=== PATIENT | male | born 1955 | race Caucasian/White ===

== ENCOUNTER 2023-10-01 22:27 | Observation (INO) | payer MEDICARE ==
--- NOTE | 2023-10-01 22:53 | ED ---
General Adult HPI - General Chief complaint: Chest Pain Stated complaint: Chest pain Time Seen by Provider: 10/01/23 22:43 Source: patient Mode of arrival: ambulatory Limitations: no limitations - History of Present Illness Initial comments: This patient is a 68-year-old man transferred here from [place] to have further cardiac evaluation related to chest pain. The patient developed pain approximately 3 days ago after cutting wood. He states that the pain is mainly in the left chest usually when he turns his head to the left and moves his shoulder. When I interview him he is not having any pain. There were no associated symptoms. Patient states that he had gone to the after hours clinic [facility] where they rubio his blood and then they called him at home and told his heart enzymes were elevated. Patient went back to the hospital and was t ransferred here. The patient denies recent cardiac testing. No known cardiac history. Onset/Timin -: days(s) Location: chest Radiation: extremity Consistency: intermittent Improves with: none Worsens with: none Treatments Prior to Arrival: Aspirin, other - Related Data Home Medications Medication Instructions Recorded Confirmed Bisoprolol [Zebeta] 2.5 mg PO DAILY 10/01/23 10/01/23 Fluticasone Nasal [place] [Flonase 1 spray EA NOSTRIL DAILY PRN 10/01/23 10/01/23 Nasal [place]] Previous Rx's Medication Instructions Recorded Aspirin 81 mg PO DAILY tab 10/03/23 Atorvastatin [Lipitor] 20 mg PO DAILY #90 tablet 10/03/23 Allergies Allergy/AdvReac Type Severity Reaction Status Date / Time No Known Allergies Allergy Verified 10/01/23 22:56 Review of Systems ROS Statement: Those systems with pertinent positive or pertinent negative responses have been documented in the HPI. ROS Other: All systems not noted in ROS Statement are negative. Constitutional: Denies: fever, chills Respiratory: Denies: cough, dyspnea, wheezes Cardiovascular: Reports: chest pain. Denies: palpitations, orthopnea, edema, syncope Gastrointestinal: Denies: abdominal pain, nausea, vomiting, diarrhea Genitourinary: Denies: dysuria, hematuria Musculoskeletal: Denies: back pain Skin: Denies: rash Neurological: Denies: headache, weakness, numbness Past Medical History Past Medical History: Hyperlipidemia, Hypertension History of Any Multi-Drug Resistant Organisms: None Reported Additional Past Surgical History / Comment(s): neck fusion, back surgery Past Psychological History: Unable to Obtain Smoking Status: Never smoker Past Alcohol Use History: Occasional Past Drug Use History: None Reported General Exam Limitations: no limitations General appearance: alert, in no apparent distress Head exam: Present: atraumatic, normocephalic Eye exam: Present: normal appearance. Absent: scleral icterus, conjunctival injection ENT exam: Present: normal oropharynx Neck exam: Present: normal inspection, full ROM Respiratory exam: Present: normal lung sounds bilaterally. Absent: respiratory distress, wheezes, rales, rhonchi, stridor, chest wall tenderness, accessory muscle use Cardiovascular Exam: Present: normal rhythm, bradycardia, normal heart sounds. Absent: systolic murmur, diastolic murmur, rubs, gallop GI/Abdominal exam: Present: soft. Absent: distended, tenderness, guarding, rebound, rigid, mass Extremities exam: Present: normal inspection, normal capillary refill. Absent: pedal edema, calf tenderness Back exam: Present: normal inspection. Absent: CVA tenderness (R), CVA tenderness (L) Neurological exam: Present: alert Skin exam: Present: warm, dry, intact, normal color. Absent: rash Course Vital Signs 10/01/23 10/02/23 10/02/23 22:35 02:09 04:15 Temperature 97.6 F Pulse Rate 54 L 50 L 50 L Respiratory 18 20 17 Rate Blood Pressure 156/102 154/93 119/93 O2 Sat by Pulse 97 93 L 96 Oximetry 10/02/23 10/02/23 10/02/23 06:34 08:00 12:00 Temperature 98.1 F Pulse Rate 54 L 60 49 L Respiratory 17 18 20 Rate Blood Pressure 151/96 148/93 127/90 O2 Sat by Pulse 98 97 95 Oximetry EKG Findings - EKG Results: EKG: interpreted by ERMD, sinus rhythm, normal axis, normal QRS, normal ST/T EKG shows: bradycardia (Rate 51 bpm) Medical Decision Making - Medical Decision Making Was pt. sent in by a medical professional or institution (, PA, WELL FLOW OPERATOR, urgent care, hospital, or care home...) When possible be specific @ -[Patient is transferred from outside hospital Did you speak to anyone other than the patient for history (EMS, parent, family, police, friend...)? What history was obtained from this source @ -[I spoke with the transferring physician Did you review nursing and triage notes (agree or disagree)? Why? @ -[I reviewed and agree with nursing and triage notes] Were old charts reviewed (outside hosp., previous admission, EMS record, old EKG, old radiological studies, urgent care reports/EKG's, care home records)? Report findings @ -[Transfer records were reviewed] Differential Diagnosis (chest pain, altered mental status, abdominal pain women, abdominal pain men, vaginal bleeding, weakness, fever, dyspnea, syncope, headache, dizziness, GI bleed, back pain, seizure, CVA, palpatations, mental health, musculoskeletal)? @ -[Differential Chest Pain: Stable Angina, Unstable Angina, STEMI, NSTEMI Aortic Dissection, Pneumothorax, Musculoskeletal, Esophageal Spasm GERD, Cholecystitis, Pancreatitis, Zoster, this is not meant to be an all-inclusive list. EKG interpreted by me (3pts min.). @ -[I interpreted As above] X-rays interpreted by me (1pt min.). @ -[None done] CT interpreted by me (1pt min.). @ -[None done] U/S interpreted by me (1pt. min.). @ -[None done] What testing was considered but not performed or refused? (CT, X-rays, U/S, labs)? Why? @ -[None] What meds were considered but not given or refused? Why? @ -[None] Did you discuss the management of the patient with other professionals (professionals i.e. , PA, WELL FLOW OPERATOR, lab, RT, psych nurse, high school social studies tutor, practicing dermatologist, teacher, commissioned fire officer, case checker)? Give summary @ -[The patient is admitted, case discussed with admitting physician and recommendations are incorporated Was smoking cessation discussed for >3mins.? @ -[No] Was critical care preformed (if so, how long)? @ -[No] Were there social determinants of health that impacted care today? How? (Homelessness, low income, unemployed, alcoholism, drug addiction, transportation, low edu. Level, literacy, decrease access to med. care, prison, rehab)? @ -[No] Was there de-escalation of care discussed even if they declined (Discuss DNR or withdrawal of care, Hospice)? DNR status @ -[No] What co-morbidities impacted this encounter? (DM, HTN, Smoking, COPD, CAD, Cancer, CVA, ARF, Chemo, Hep., AIDS, mental health diagnosis, sleep apnea, morbid obesity)? @ -[None] Was patient admitted / discharged? Hospital course, mention meds given and route, prescriptions, significant lab abnormalities, going to OR and other pertinent info. @ -[ Undiagnosed new problem with uncertain prognosis? @ -[No] Drug Therapy requiring intensive monitoring for toxicity (Heparin, Nitro, Insulin, Cardizem)? @ -[The patient is continued on heparin IV Were any procedures done? @ -[No] Diagnosis/symptom? @ -[Chest pain with elevated troponin Acute, or Chronic, or Acute on Chronic? @ -[Acute Uncomplicated (without systemic symptoms) or Complicated (systemic symptoms)? @ -[Complicated Side effects of treatment? @ -[No] Exacerbation, Progression, or Severe Exacerbation? @ -[No] Poses a threat to life or bodily function? How? (Chest pain, [place], [place], pneumonia, PE, COPD, DKA, ARF, appy, cholecystitis, CVA, Diverticulitis, Homicidal, Suicidal, threat to staff... and all critical care pts) @ -[Yes and requires full cardiology evaluation - Lab Data Result diagrams: 10/01/23 22:37 10/01/23 22:37 Lab Results 10/01/23 10/01/23 10/01/23 Range/Units 22:37 22:37 22:37 WBC 5.6 (3.8-10.6) k/uL RBC 5.21 (4.30-5.90) m/uL Hgb 15.7 (13.0-17.5) gm/dL Hct 46.6 (39.0-53.0) % MCV 89.4 (80.0-100.0) fL MCH 30.1 (25.0-35.0) pg MCHC 33.7 (31.0-37.0) g/dL RDW 13.3 (11.5-15.5) % Plt Count 188 (150-450) k/uL MPV 7.2 Neutrophils % 59 % Lymphocytes % 26 % Monocytes % 7 % Eosinophils % 4 % Basophils % 1 % Neutrophils # 3.3 (1.3-7.7) k/uL Lymphocytes # 1.5 (1.0-4.8) k/uL Monocytes # 0.4 (0-1.0) k/uL Eosinophils # 0.2 (0-0.7) k/uL Basophils # 0.1 (0-0.2) k/uL Sodium 140 (137-145) mmol/L Potassium 4.2 (3.5-5.1) mmol/L Chloride 111 H (98-107) mmol/L Carbon Dioxide 20 L (22-30) mmol/L Anion Gap 9 mmol/L BUN 21 H (9-20) mg/dL Creatinine 0.71 (0.66-1.25) mg/dL Est GFR (CKD-EPI)AfAm >90 (>60 ml/min/1.73 sqM) Est GFR (CKD-EPI)NonAf >90 (>60 ml/min/1.73 sqM) Glucose 99 (74-99) mg/dL Calcium 9.5 (8.4-10.2) mg/dL Magnesium 2.0 (1.6-2.3) mg/dL Total Bilirubin 0.5 (0.2-1.3) mg/dL AST 25 (17-59) U/L ALT 25 (4-49) U/L Alkaline Phosphatase 71 (38-126) U/L Troponin I 0.048 H* (0.000-0.034) ng/mL Total Protein 7.4 (6.3-8.2) g/dL Albumin 4.2 (3.5-5.0) g/dL Critical Care Time Critical Care Time: Yes (30 minutes) Disposition Clinical Impression: Chest pain, Elevated troponin I level Disposition: ADMITTED IP TO THIS HOSP Condition: Good
[2023-10-01 23:14] LABS: Basophils # (A) 0.1 k/uL (0-0.2); Basophils % (A) 1 %; Eosinophils # (A) 0.2 k/uL (0-0.7); Eosinophils % (A) 4 %; HCT 46.6 % (39.0-53.0); HGB 15.7 gm/dL (13.0-17.5); Lymphocytes # (A) 1.5 k/uL (1.0-4.8); Lymphocytes % (A) 26 %; MCH 30.1 pg (25.0-35.0); MCHC 33.7 g/dL (31.0-37.0); MCV 89.4 fL (80.0-100.0); Mean Platelet Volume 7.2; Monocytes # (A) 0.4 k/uL (0-1.0); Monocytes % (A) 7 %; Neutrophils # (A) 3.3 k/uL (1.3-7.7); Neutrophils % (A) 59 %; Platelet Count 188 k/uL (150-450); RBC 5.21 m/uL (4.30-5.90); RDW 13.3 % (11.5-15.5); WBC 5.6 k/uL (3.8-10.6)
[2023-10-01 23:19] LABS: ALT 25 U/L (4-49); AST 25 U/L (17-59); African American GFR (CKD) >90 (>60 ml/min/1.73 sqM); Albumin 4.2 g/dL (3.5-5.0); Alkaline Phosphatase 71 U/L (38-126); Anion Gap 9 mmol/L; Blood Urea Nitrogen 21 mg/dL (9-20); Calcium 9.5 mg/dL (8.4-10.2); Carbon Dioxide 20 mmol/L (22-30); Chloride 111 mmol/L (98-107); Glucose 99 mg/dL (74-99); Non-African American GFR(CKD) >90 (>60 ml/min/1.73 sqM); Potassium 4.2 mmol/L (3.5-5.1); Sodium 140 mmol/L (137-145); Total Bilirubin 0.5 mg/dL (0.2-1.3); Total Protein 7.4 g/dL (6.3-8.2)
[2023-10-01] MEDS ORDERED: NITROGLYCERIN SL TABS 0.4 MG TAB SUBLINGUAL PRN (23:30)
[2023-10-02] MEDS: HEPARIN SOD,PORK IN 0.45% NACL 25,000 UNIT in 0.45% NACL 1 250ML.BAG IV SCH ×2 (00:13→19:44)
[2023-10-02] MEDS: SODIUM CHLORIDE 0.9% 1,000 ML IV SCH ×2 (00:20→08:45)
--- NOTE | 2023-10-02 01:14 | HP ---
HISTORY AND PHYSICAL HISTORY OF PRESENT ILLNESS: This is a 68-year-old young man who came from [facility] for atypical chest pain. He tries to moves his shoulders, has pain, also pleuritic pain most likely with borderline troponin elevation. We are going to admit him, cardiology consult, further workup pending. HOME MEDICATIONS: 1. Nubeta 2.5 daily. 2. Thorp-3 fatty acids. 3. Zolpidem at night. 4. Fluticasone nasal spray. ALLERGIES: Negative. PAST MEDICAL HISTORY: Hypertension, dyslipidemia. PAST SURGICAL HISTORY: Back surgery, neck surgery. SOCIAL HISTORY: Nonsmoker, no alcohol. REVIEW OF SYSTEMS: A 14-point review of systems is otherwise negative. PHYSICAL EXAMINATION: VITAL SIGNS: Temperature 97.6, pulse 64, respiratory rate 16 to 18, and blood pressure 166/102. EKG sinus rhythm, bradycardia. LABS: Labs are reviewed BUN 21, creatinine is 0.71. White count 5.6, hemoglobin is 15.7, sodium 140, potassium 4.2. GFR is greater than 90, elevated chest pain elevated troponin. Prognosis guarded. Cardiology consult to rule out myocardial infarction, rule out PE, etc. Prognosis guarded. MMODL / IJN: [id number] /
[2023-10-02] MEDS ORDERED: ASPIRIN 325 MG TAB PO SCH (09:00)
[2023-10-02 09:17] LABS: Chol/HDL Ratio 4.71 Ratio; LDL Cholesterol,Calculated 156.6 mg/dL (0.0-131.0); VLDL Calculation 15.92 mg/dL (5.00-40.00)
[2023-10-02] MEDS ORDERED: ALPRAZolam 0.25 MG TAB PO PRN (09:58)
[2023-10-02] MEDS ORDERED: ALPRAZolam 0.5 MG TAB PO PRN (09:58)
[2023-10-02] MEDS ORDERED: ATORVASTATIN 80 MG TAB PO STA (09:58)
[2023-10-02] MEDS ORDERED: ASPIRIN 325 MG TAB PO STA (09:58)
[2023-10-02] MEDS ORDERED: NITROGLYCERIN SL TABS 0.4 MG TAB SUBLINGUAL PRN (09:58)
--- NOTE | 2023-10-02 11:38 | CA ---
Transthoracic Echo Report Name: Jaquan Gama Age: 68 Gender: M : 1955 Exam Date: 10/02/2023 10:54 Exam Location: [facility] Ht (in): 72 Wt (lb): 210 Ordering Physician: Mariel Clements Attending/Referring Phys: Core Measures Abstractor Karlee Mancuso RDCS Procedure CPT: Indications: LVF Cardiac Hx: Technical Quality: Fair Contrast 1: Total Dose (mL): Contrast 2: Total Dose (mL): MEASUREMENTS (Male / Female) Normal Values 2D ECHO LV Diastolic Diameter PLAX 4.6 cm 4.2 - 5.9 / 3.9 - 5.3 cm LV Systolic Diameter PLAX 3.0 cm IVS Diastolic Thickness 1.3 cm 0.6 - 1.0 / 0.6 - 0.9 cm LVPW Diastolic Thickness 1.3 cm 0.6 - 1.0 / 0.6 - 0.9 cm LV Relative Wall Thickness 0.6 RV Internal Dim ED PLAX 3.4 cm LA Volume 85.9 cm??? 18 - 58 / 22 - 52 cm??? LA Volume Index 38.7 cm???/m??? 16 - 28 cm???/m??? M-MODE Aortic Root Diameter MM 3.2 cm LA Systolic Diameter MM 3.5 cm LA Ao Ratio MM 1.1 AV Cusp Separation MM 2.2 cm DOPPLER AV Peak Velocity 138.0 cm/s AV Peak Gradient 7.6 mmHg AV Mean Velocity 100.1 cm/s AV Mean Gradient 4.6 mmHg AV Velocity Time Integral 32.0 cm AI Peak Velocity 416.2 cm/s AI Peak Gradient 69.3 mmHg AI Pressure Half Time 1274.2 ms LVOT Peak Velocity 122.4 cm/s LVOT Peak Gradient 6.0 mmHg LVOT Velocity Time Integral 26.7 cm MV Area PHT 3.0 cm??? Mitral E Point Velocity 79.7 cm/s Mitral A Point Velocity 86.3 cm/s Mitral E to A Ratio 0.9 MV Deceleration Time 252.4 ms MV E' Velocity 6.5 cm/s Mitral E to MV E' Ratio 12.3 TR Peak Velocity 182.2 cm/s TR Peak Gradient 13.3 mmHg Right Ventricular Systolic Press 17.9 mmHg FINDINGS Left Ventricle Mildly increased left ventricular wall thickness. Left ventricular cavity size normal. Normal left ventricular systolic function with no obvious regional wall motion abnormalities. Left ventricular ejection fraction is estimated at 55-60 %. Right Ventricle Normal right ventricular size and function. Right ventricular systolic pressure within normal limits. Right Atrium Right atrial dilatation. Left Atrium Moderately increased left atrial volume. Mildly increased left atrial area. Mitral Valve Structurally normal mitral valve. [id number] mitral regurgitation. Aortic Valve Trileaflet aortic valve. No aortic stenosis. Mild aortic regurgitation. Tricuspid Valve Structurally normal tricuspid valve. Mild tricuspid regurgitation. Pulmonic Valve Trace pulmonic regurgitation. Pericardium Normal pericardium. Aorta Normal size aortic root and proximal ascending aorta. CONCLUSIONS Preserved LV size and systolic function Biatrial enlargement IVC appears dilated Previewed by: Dr. Alexander Alaniz MD (Electronically Signed) Final Date: 02 October 2023 11:37
[2023-10-02] MEDS ORDERED: HEPARIN SODIUM 1,000 UN/ML (10ML VL) IV PRN (12:24)
--- NOTE | 2023-10-02 14:53 | P.CRDCN ---
History of Present Illness Consult date: 10/02/23 Consult reason: chest pain (elevated troponins) History of present illness: History of present illness: This is a 68-year-old male with no previous cardiac history. Patient does not follow with a genetic supervisor. His past medical history ofhypertension. He states history of stacking and chopping wood on and by the end of the day he was experiencing some left-sided chest pain. It seemed to be worse when he turned in certain directions and thought it was related to a muscle injury. The pain was coming and going. He normally walks on a treadmill for 2 miles every day since September 16. He denies any history of alcohol use, tobacco use, illicit drug use or marijuana use. Patient states he initially presented to the [facility] in [place] and then was transferred here. Regarding patient's home cardiac medications. His beta-senai was not resumed but he states that his nurse told him to take it from his own home medications. We discussed doing a stress test this morning however because patient took a beta-senia, this will have to be delayed. Patient is in agreement to undergo cardiac catheterization. EKG clinic in [place] and was then transferred here CBC is unremarkable. Potassium 4.2, BUN 21 creatinine 0.71. Troponin 0.048, 0.051. Triglycerides 79, cholesterol 219, LDL 156. Home cardiac medications:for further evaluation.sinus rhythm with no acute ST changes. Echocardiogram reveals preserved LV size and systolic function. Biatrial enlargement. IVC appears dilated. Review Of Systems: At the time of my exam: CONSTITUTIONAL: Denies fever or chills. CARDIOVASCULAR: Denies chest pain, Denies shortness of breath, no orthopnea, PND or palpitations. RESPIRATORY: Denies cough. GASTROINTESTINAL: Denies abdominal pain, diarrhea, constipation, nausea or vomiting. MUSCULOSKELETAL: Denies myalgias. NEUROLOGIC: Denies numbness, tingling or weakness. ENDOCRINE: Denies fatigue, weight change, polydipsia or polyurina. GENITOURINARY: Denies burning, hematuria or urgency with micturation. HEMATOLOGIC: Denies history of anemia or bleeding. Physical examination: Gen: This is a 68-year-old male resting and in no acute distress VS: reviewed HEENT: Head is atraumatic, normocephalic. Pupils equal, round. Sclerae is anicteric. NECK: Supple. No JVD. LUNGS: Clear to auscultation. No wheezes or rhonchi. No intercostal retractions. HEART: Regular rate and rhythm. No murmur. ABDOMEN: Soft No tenderness. EXTREMITIES: No pedal edema. No calf tenderness. NEUROLOGICAL: Patient is awake, alert and oriented x3. Assessment: Atypical chest pain with mild elevation in troponins History of hypertension Plan: Start patient on heparin drip Schedule patient for cardiac catheterization today with Dr. Harrison Further recommendations to follow based upon clinical course Thank you kindly for this consultation. Nurse practitioner note has been reviewed, I agree with documented findings and plan of care. Patient was seen and examined. Past Medical History Past Medical History: Hyperlipidemia, Hypertension History of Any Multi-Drug Resistant Organisms: None Reported Additional Past Surgical History / Comment(s): neck fusion, back surgery Past Psychological History: Unable to Obtain Smoking Status: Never smoker Past Alcohol Use History: Occasional Past Drug Use History: None Reported Medications and Allergies Home Medications Medication Instructions Recorded Confirmed Type Bisoprolol [Zebeta] 2.5 mg PO DAILY 10/01/23 10/01/23 History Fluticasone Nasal [place] [Flonase 1 spray EA NOSTRIL DAILY PRN 10/01/23 10/01/23 History Nasal [place]] Garlic 1,000 mg PO BID 10/01/23 10/01/23 History Ibuprofen [Motrin Ib] 400 mg PO BID 10/01/23 10/01/23 History Rainier-3 Fatty Acids [Rainier-3] 1,000 mg PO BID 10/01/23 10/01/23 History Zolpidem Tartrate [Ambien Cr] 3.125 mg PO HS PRN 10/01/23 10/01/23 History Allergies Allergy/AdvReac Type Severity Reaction Status Date / Time No Known Allergies Allergy Verified 10/01/23 22:56 Physical Exam Vitals: Vital Signs Temp Pulse Resp BP Pulse Ox 10/02/23 08:00 98.1 F 60 18 148/93 97 10/02/23 06:34 54 L 17 151/96 98 10/02/23 04:15 50 L 17 119/93 96 10/02/23 02:09 50 L 20 154/93 93 L 10/01/23 22:35 97.6 F 54 L 18 156/102 97 Intake and Output 0110/02/23 10/02/23 22:59 06:59 14:59 Other: Weight 95.254 kg Results 10/01/23 22:37 10/01/23 22:37 Cardiac Enzymes 10/01/23 10/01/23 10/02/23 Range/Units 22:37 22:37 02:30 AST 25 (17-59) U/L Troponin I 0.048 H* 0.051 H* (0.000-0.034) ng/mL Lipids 10/02/23 Range/Units 02:30 Triglycerides 79.60 (0.00-149.00) mg/dL Cholesterol 219.00 H (0.00-200.00) mg/dL HDL Cholesterol 46.50 (40.00-60.00) mg/dL Cholesterol/HDL Ratio 4.71 Ratio CBC 10/01/23 Range/Units 22:37 WBC 5.6 (3.8-10.6) k/uL RBC 5.21 (4.30-5.90) m/uL Hgb 15.7 (13.0-17.5) gm/dL Hct 46.6 (39.0-53.0) % Plt Count 188 (150-450) k/uL Comprehensive Metabolic Panel 10/01/23 Range/Units 22:37 Sodium 140 (137-145) mmol/L Potassium 4.2 (3.5-5.1) mmol/L Chloride 111 H (98-107) mmol/L Carbon Dioxide 20 L (22-30) mmol/L BUN 21 H (9-20) mg/dL Creatinine 0.71 (0.66-1.25) mg/dL Glucose 99 (74-99) mg/dL Calcium 9.5 (8.4-10.2) mg/dL AST 25 (17-59) U/L ALT 25 (4-49) U/L Alkaline Phosphatase 71 (38-126) U/L Total Protein 7.4 (6.3-8.2) g/dL Albumin 4.2 (3.5-5.0) g/dL Current Medications Generic Name Dose Route Start Last Admin Trade Name Freq PRN Reason Stop Dose Admin Aspirin 325 mg 10/02/23 09:00 10/02/23 08:44 Aspirin 325 Mg Tab PO 325 mg DAILY SKYLAR Administration Heparin Sodium/Sodium Chloride 250 mls @ 10.002 mls/hr 10/01/23 23:15 10/02/23 00:13 25,000 unit/ Sodium Chloride IV 10.5 units/kg/hr .Q24H SKYLAR 10 mls/hr Administration Protocol 10.5 UNITS/KG/HR Sodium Chloride 1,000 mls @ 100 mls/hr 10/01/23 23:30 10/02/23 08:45 Saline 0.9% IV 100 mls/hr .Q10H SKYLAR Administration Nitroglycerin 0.4 mg 10/01/23 23:30 Nitroglycerin Sl Tabs 0.4 Mg Tab SUBLINGUAL Q5M PRN Chest Pain Intake and Output 10/01/23 10/02/23 10/02/23 22:59 06:59 14:59 Other: Weight 95.254 kg 10/01/23 22:37 10/01/23 22:37
[2023-10-02] MEDS ORDERED: FLUTICASONE 50MCG/SPRAY NASAL 16GM EA NOSTRIL PRN (17:54)
[2023-10-02] MEDS: IBUPROFEN 400 MG TAB PO SCH (20:51)
--- NOTE | 2023-10-03 00:56 | PN ---
PROGRESS NOTE SUBJECTIVE: This 68-year-old white male remains on heparin. He had elevated troponins. Cardiology saw him today. He is going to have heart catheterization, came down from [facility]. Echo shows preserved LV function, biatrial enlargement. REVIEW OF SYSTEMS: A 14-point review of systems otherwise negative. OBJECTIVE: PSYCH: Fair mood and affect. HEENT: Pupils equal, round, and reactive. LUNGS: Clear. HEART: Regular rate and rhythm. HEMATOLOGY: Negative for Homans. He has atypical chest pain. Mildly elevated troponins. Hypertension. See for heart catheterization, possible followup depending on what they find. Prognosis guarded. MMODL / IJN: [id number] /
[2023-10-03] MEDS: SODIUM CHLORIDE 0.9% 1,000 ML IV SCH ×3 (02:40→12:54)
[2023-10-03] MEDS ORDERED: HEPARIN SODIUM,PORCINE 10,000 UNIT in SODIUM CHLORIDE 0.9% 1,000 ML IRRIGATION PRN (07:00)
[2023-10-03] MEDS ORDERED: HEPARIN SODIUM,PORCINE (1 ML) 2,500 UNIT in SODIUM CHLORIDE 0.9% 250 ML IRRIGATION PRN (07:00)
[2023-10-03] MEDS: IBUPROFEN 400 MG TAB PO SCH (07:58)
[2023-10-03] MEDS ORDERED: ATORVASTATIN 80 MG TAB PO STA (07:59)
[2023-10-03] MEDS ORDERED: ASPIRIN 325 MG TAB PO STA (07:59)
[2023-10-03] MEDS ORDERED: BISOPROLOL 5 MG TAB PO SCH (09:00)
[2023-10-03] MEDS ORDERED: ASPIRIN 81 MG PO SCH (09:00)
[2023-10-03] MEDS ORDERED: IV FLUID CONTINUATION 1,000 ML IV ONE (09:14)
[2023-10-03] MEDS ORDERED: fentaNYL (PF) 50 MCG/ML 2 ML AMP ONE (09:22)
[2023-10-03] MEDS ORDERED: HEPARIN SODIUM 1,000 UN/ML (10ML VL) ONE (09:22)
[2023-10-03] MEDS ORDERED: fentaNYL (PF) 50 MCG/ML 2 ML AMP IVP ONE (09:35)
[2023-10-03] MEDS ORDERED: MIDAZOLAM 2 MG/2 ML VIAL IVP ONE (09:35)
[2023-10-03] MEDS ORDERED: LIDOCAINE 1% INJ 10MG/ML (20 ML MDV) SQ ONE (09:37)
[2023-10-03] MEDS ORDERED: VERAPAMIL 2.5 MG/ML 2 ML AMP INTRAARTER ONE (09:39)
[2023-10-03] MEDS ORDERED: HEPARIN SODIUM 1,000 UN/ML (10ML VL) IV ONE (09:43)
[2023-10-03] MEDS ORDERED: IOPAMIDOL-370 100ML BTL INJ ONE (09:50)
[2023-10-03] MEDS ORDERED: RX INFO: IV CONTRAST WAS GIVEN 1 EACH MISC MISCELLANE PRN (10:07)
[2023-10-03] MEDS ORDERED: SODIUM CHLORIDE 0.9% 1,000 ML IV SCH (10:15)
--- NOTE | 2023-10-03 13:30 | P.CARDCATH ---
Date of Procedure: 10/03/23 Description of Procedure: DIAGNOSTIC CORONARY ANGIOGRAPHY and LEFT HEART CATH REPORT PROCEDURES PERFORMED: Left heart catheterization Selective coronary angiography Moderate conscious sedation 16 mins Ultrasound assisted Right radial access INDICATION: NSTEMI CONSENT: I have discussed the risks, benefits and alternative therapies for the above-mentioned procedure, sedation/analgesia and necessary blood product administration (if indicated, as they pertain to this patient). The patient has indicated understanding and acceptance of the risks and procedures discussed. Conscious Sedation: Patient's ECG, heart rate, blood pressure, pulse oximetry was monitored throughout the duration of procedure under my direct supervision. [1] mg Versed and [50] mg Fentanyl were used for induction of moderate conscious sedation. Total duration of moderate concious sedation [25] minutes. PROCEDURE: After explaining the risks, benefits and alternatives of the above mentioned procedures in detail to the patient, informed consent was obtained. Patient was taken to the catheterization lab, prepped and draped in usual sterile fashion using universal precuations. Barbow and sania test were performed to confirm adequate perfusion to fingers. Ultrasound was used to identify the radial artery. 1% lidocaine was infiltrated over the right radial artery. A 6-Bermudian sheath was placed and secured in the right radial artery using modified Seldinger technique. The sheath was flushed and 5 mg verapamil was administered intra-arterially. J tipped wire was advanced under fluoroscopic guidance. Once the wire tip reached aortic root [5000] units of IV heparin was given. Over the wire JL4 diagnostic catheter was advanced. Wire was removed, catheter was flushed and manipulated under fluoroscopy to selectively engaged the left coronary ostium. Left coronary angioplasty was performed in different angiographic projections. This catheter was exchanged for a JR4 diagnostic catheter over the wire. The catheter was flushed and manipulated to cross the aortic valve. LV pressures were obtained. Pullback was performed across aortic valve and catheter was manipulated to selectively engage the right coronary ostium under fluoroscopic guidance. Right coronary angiography was performed in different angiographic projections. Catheter was removed over the wire. Radial sheath was flushed. The right radial sheath was removed and a TR band was placed with excellent patent hemostasis was achieved. The patient tolerated the procedure well. Patient was transported back to the post catheterization holding area in stable condition. Angiographic images were reviewed in detail. HEMODYNAMICS: Aortic Pressure: 136/76 mmHg. LV pressure: 138/4 mmHg. LVEDP 12 mmHg. SELECTIVE CORONARY ARTERIOGRAPHY: LEFT MAIN: The left main is a large caliber vessel which bifurcates into the LAD and circumflex. Left main appears angiographically normal. LEFT ANTERIOR DESCENDING CORONARY ARTERY: LAD is a large caliber vessel which wraps around to the apex. It appears angiographically normal. It gives rise to diagonal branches which appears angiographically normal LEFT CIRCUMFLEX CORONARY ARTERY: It is dominant vessel. Left circumflex is a large caliber vessel. It appears angiographically normal. It gives rise to large OM and PDA branch which appears angiographically normal RIGHT CORONARY ARTERY: Non Dominant vessel. Right coronary artery small and only gives RV marginal branches which are angiographically normal. IMPRESSION: Angiographically normal coronary arteries as described above. Normal left sided filling pressures PLAN: Aggressive risk factor modification per most recent ACC/AHA guidelines. 150 cc fluids for 3 hours Discharge home in 3 hours Follow-up in the office in 1-2 weeks. Performing Physician Bruce Harrison MD
[2023-10-03 19:07] VITALS: TEMP 98.1
[2023-10-03 20:10] VITALS: BP 137/84; PULSE 53; RESP 18
== END 2023-10-03 20:37 | disposition home or self-care (01) ==
LOC: EC 22:27 → 3SCARD 23:31
PROVIDERS: ADMIT Family Medicine; ATTEND Family Medicine
DX: R07.89 Other chest pain (principal); E78.5 Hyperlipidemia, unspecified; I10 Essential (primary) hypertension; Z79.899 Other long term (current) drug therapy; Z98.1 Arthrodesis status; Z79.82 Long term (current) use of aspirin
CPT/HCPCS: 99152 ×2; 96374; 99285; 36415; 94760 ×2; 93005 ×2; 93306; 93458; 76937; 80061; 80053; 83735; 84484 ×2; 85025; 85730 ×2; G0378 ×3; C1769 ×2; C1894; J2250; J2001; J3010; J1644 ×3; Q9967